=== PATIENT | female | born 1965 | race African-American/Black ===

== ENCOUNTER 2022-06-26 09:16 | Inpatient (IN) | payer SELFPAY ==
[~2022-06-26] VITALS: Ht 162.6 cm; Wt 99.3 kg
[2022-06-26 11:13] LABS: BASOPHILS % 0.2 % (0.0-2.0); EOSINOPHILS % 2.5 % (0.0-5.0); HEMATOCRIT. 23.3 % (36.0-48.0); HEMOGLOBIN. 7.9 g/dL (12.0-16.0); MEAN CORPUSCULAR HEMOGLOBIN 31.3 pg (28.0-32.0); MEAN CORPUSCULAR VOLUME 92.1 fL (81.0-99.0); MEAN PLATELET VOLUME 6.8 fl (7.4-10.4); MONOCYTES % 14.7 % (2.0-8.0); NEUTROPHILS % 55.6 % (40.0-76.0); PLATELET 304 x1000/uL (130-400); RED BLOOD CELL COUNT 2.53 mill/uL (4.2-5.4); RED CELL DISTRIBUTION WIDTH 16.2 % (11.6-14.6)
[2022-06-26 11:22] LABS: CHLORIDE 112 mEq/L (98-107)
[2022-06-26 14:42] LABS: BASOPHILS % 0.1 % (0.0-2.0); EOSINOPHILS % 1.9 % (0.0-5.0); HEMATOCRIT. 22.9 % (36.0-48.0); HEMOGLOBIN. 7.9 g/dL (12.0-16.0); LYMPHOCYTES % 22.3 % (20.0-50.0); MEAN CORPUSCULAR HEMOGLOBIN 31.8 pg (28.0-32.0); MEAN CORPUSCULAR VOLUME 91.7 fL (81.0-99.0); MEAN PLATELET VOLUME 7.1 fl (7.4-10.4); MONOCYTES % 8.7 % (2.0-8.0); PLATELET 309 x1000/uL (130-400); RED CELL DISTRIBUTION WIDTH 16.2 % (11.6-14.6)
[2022-06-26 19:56] VITALS: BP 115/60
[2022-06-26 20:00] VITALS: BP 115/60
[2022-06-26] MEDS: LACTATED RINGERS 1,000 ML IV SCH (21:01)
[2022-06-26 21:12] LABS: CLARITY URINE TURBID (CLEAR); COLOR URINE RED (YELLOW); KETONES URINE NEGATIVE (NEGATIVE); LEUKOCYTE ESTERASE URINE 2+ (NEGATIVE); NITRITE URINE POSITIVE (NEGATIVE); OCCULT BLOOD URINE 3+ (NEGATIVE); PH URINE 5.5 (4.5-8.0); PROTEIN URINE 3+ (NEGATIVE); SPECIFIC GRAVITY URINE 1.019 (1.005-1.030); UROBILINOGEN URINE 0.2 E.U./dL (0.2-1.0)
[2022-06-26 21:15] LABS: HCG SCREEN NEGATIVE
[2022-06-27] VITALS (14 sets, daily range): BP systolic 119–140; BP diastolic 55–76
[2022-06-27] MEDS: LACTATED RINGERS 1,000 ML IV SCH ×2 (03:34→11:37)
[2022-06-27 07:15] LABS: BASOPHILS % 0.1 % (0.0-2.0); EOSINOPHILS % 1.8 % (0.0-5.0); HEMATOCRIT. 21.1 % (36.0-48.0); HEMOGLOBIN. 7.3 g/dL (12.0-16.0); LYMPHOCYTES % 22.9 % (20.0-50.0); MEAN CORPUSCULAR HEMOGLOBIN 32.2 pg (28.0-32.0); MEAN CORPUSCULAR VOLUME 92.4 fL (81.0-99.0); NEUTROPHILS % 62.2 % (40.0-76.0); PLATELET 277 x1000/uL (130-400); RED BLOOD CELL COUNT 2.28 mill/uL (4.2-5.4)
[2022-06-27 07:29] LABS: CHLORIDE 111 mEq/L (98-107)
[2022-06-27 07:35] LABS: INR 1.1; PARTIAL THROMBOPLASTIN TIME 23.8 sec (23.4-31.0); PROTHROMBIN TIME 11.5 sec (9.6-11.0)
[2022-06-27] MEDS ORDERED: MULTIVITAMINS,THER W-MINERALS TABLET PO SCH (09:30)
[2022-06-27] MEDS ORDERED: FERR325T6 PO (11:05)
[2022-06-27] MEDS ORDERED: HYDR25TA MT (11:09)
[2022-06-27] MEDS ORDERED: NORE0.3520 MT (11:09)
[2022-06-27] MEDS: FERROUS SULFATE 325MG TABLET PO SCH ×2 (12:09→18:10)
[2022-06-27 16:55] LABS: HEMATOCRIT 26.6 % (36.0-48.0); HEMOGLOBIN 9.1 g/dL (12.0-16.0)
== END 2022-06-27 18:35 | disposition home or self-care (01) | DRG 663 ==
LOC: ER 09:16 → 8 EST A/PP 14:05 → 8WST 19:37
PROVIDERS: ADMIT Obstetrics & Gynecology; ATTEND Obstetrics & Gynecology
PROC: 30233N1 Transfusion of Nonautologous Red Blood Cells into Peripheral Vein, Percutaneous Approach (ICD-10-PCS; principal; 2022-06-27)
DX: D64.9 Anemia, unspecified (principal); E28.2 Polycystic ovarian syndrome; Z20.822 Contact with and (suspected) exposure to COVID-19; N95.0 Postmenopausal bleeding; Z79.899 Other long term (current) drug therapy; Z88.0 Allergy status to penicillin; Z90.710 Acquired absence of both cervix and uterus
CPT/HCPCS: 36415; 76830; 76856; 80053; 81003; 84703; 85014; 85018; 85025; 86850; 86900; 86920; 87426; 93005; 99285; J7120; P9016

== ENCOUNTER 2023-06-02 16:57 | Emergency (ER) | payer OTHER ==
[~2023-06-02] VITALS: Ht 167.6 cm; Wt 86.2 kg
[~2023-06-02 16:57] MED LIST: FERR325T6 PO; HYDR25TA MT; NORE0.3520 MT
[2023-06-02 17:08] VITALS: O2SAT 100
[2023-06-02] MEDS: SODIUM CHLORIDE 0.9% 1000ML BAG (SEPSIS BOLUS) IV ONE (17:52)
[2023-06-02 18:23] LABS: CLARITY URINE CLOUDY (CLEAR); COLOR URINE ORANGE (YELLOW); GLUCOSE URINE NEGATIVE (NEGATIVE); KETONES URINE NEGATIVE (NEGATIVE); LEUKOCYTE ESTERASE URINE 1+ (NEGATIVE); NITRITE URINE NEGATIVE (NEGATIVE); OCCULT BLOOD URINE 3+ (NEGATIVE); PROTEIN URINE 2+ (NEGATIVE); SPECIFIC GRAVITY URINE 1.019 (1.005-1.030)
[2023-06-02] MEDS: ACETAMINOPHEN 325MG TABLET PO ONE (18:26)
[2023-06-02 18:29] LABS: BACTERIA URINE 1+; RBC URINE 25-50 /hpf (0-2); SQUAMOUS EPITHELIAL CELL URINE 2+ /lpf (RARE/1+)
[2023-06-02 19:00] VITALS: BP 141/69
[2023-06-02 19:16] LABS: HEMATOCRIT. 24.5 % (36.0-48.0); HEMOGLOBIN. 8.1 g/dL (12.0-16.0); MEAN CORPUSCULAR HEMOGLOBIN 32.4 pg (28.0-32.0); MEAN CORPUSCULAR HGB CONC 33.3 g/dL (31.0-37.0); MEAN CORPUSCULAR VOLUME 97.4 fL (81.0-99.0); MEAN PLATELET VOLUME 7.9 fl (7.4-10.4); PLATELET 193 x1000/uL (130-400); RED BLOOD CELL COUNT 2.51 mill/uL (4.2-5.4); RED CELL DISTRIBUTION WIDTH 15.1 % (11.6-14.6); WHITE BLOOD COUNT 4.7 x1000/uL (4.5-11.0)
[2023-06-02 19:18] LABS: DIFFERENTIAL COMMENT 1
[2023-06-02 19:23] LABS: INR 1.2; PROTHROMBIN TIME 12.8 sec (9.6-11.0)
[2023-06-02 19:30] LABS: PLATELET ESTIMATE NORMAL
[2023-06-02 19:31] LABS: ALANINE AMINOTRANSFERASE < 7 IU/L (10-49); ALBUMIN 3.2 g/dL (3.2-4.8); ASPARTATE AMINOTRANSFERASE 13 IU/L (<34); BILIRUBIN TOTAL 0.3 mg/dL (0.1-1.0); CALCIUM 7.1 mg/dL (8.7-10.4); CARBON DIOXIDE 21 mEq/L (21-32); CHLORIDE 105 mEq/L (98-107); CREATININE 0.9 mg/dL (0.6-1.0); GLUCOSE 92 mg/dL (70-105); POTASSIUM 3.4 mEq/L (3.5-5.1); PROTEIN TOTAL 6.3 g/dL (6.0-8.3); SODIUM 133 mEq/L (136-145); TROPONIN I HIGH SENSITIVITY 8 ng/L (3.0-34); UREA NITROGEN BLOOD 8 mg/dL (9-23)
[2023-06-02] MEDS: CEFTRIAXONE 1GM/50ML 50 ML IV ONE (20:26)
[2023-06-02] MEDS ORDERED: NITR-87 MT (20:26)
[2023-06-02 21:08] VITALS: PULSE 74; RESP 14; TEMP 98.3
== END 2023-06-02 21:08 | disposition home or self-care (01) ==
LOC: ER 16:57
DX: D64.9 Anemia, unspecified (principal); D25.9 Leiomyoma of uterus, unspecified; Z20.822 Contact with and (suspected) exposure to COVID-19; Z88.0 Allergy status to penicillin; Z90.710 Acquired absence of both cervix and uterus
CPT/HCPCS: 99284; 86870; 96365; 71045; 96361; 87426; 80053; 81003; 83880; 83605; 85025; 85610; 86850; 86900; 86901; 87040; 87086; 84484; 87804 ×2; 36415; 84145; J0696; J7030